=== PATIENT | male | born 1985 | race Caucasian/White ===

== ENCOUNTER 2019-11-17 18:04 | Emergency (ER) | payer OTHER ==
--- NOTE | 2019-11-17 18:20 | PDOC ---
Rapid Medical Evaluation Time Seen by Provider: 11/17/19 18:16 Medical Evaluation: Allergies Allergy/AdvReac Type Severity Reaction Status Date / Time No Known Allergies Allergy Verified 04/29/18 17:13 11/17/19 18:16 I have performed a brief in-person evaluation of this patient. The patient presents with a chief complaint of: Per staff from [facility], pt hit his head during day program, denies change in behavior, LOC. Pt reports hitting forehead. Pertinent physical exam findings: no external evidence of trauma I have ordered the following: nothing The patient will proceed to the ED for further evaluation. Discharge Disposition - Diagnosis Head injury - Referrals - Patient Instructions - Post Discharge Activity
[2019-11-17 18:22] VITALS: BP 110/60; PULSE 59; TEMP 97.4; BMI 21.4
--- NOTE | 2019-11-17 18:47 | PDOC ---
History of Present Illness - General Chief Complaint: Injury Stated Complaint: INJURY Time Seen by Provider: 11/17/19 18:16 - History of Present Illness Initial Comments: 11/17/19 18:40 34-year-old male with mental retardation presents for evaluation after head injury. Patient was frustrated at a group activity walked to the wall and banged his head against the wall. Patient lives at a facility there was no loss of consciousness no post injury nausea vomiting visual changes or headache. Patient is a good historian and was able to tell an accurate history and answer questions appropriately. Past History - Past Medical History Allergies/Adverse Reactions: Allergies Allergy/AdvReac Type Severity Reaction Status Date / Time No Known Allergies Allergy Verified 04/29/18 17:13 Home Medications: Ambulatory Orders Aripiprazole 5 mg PO DAILY 04/29/18 Aripiprazole [Abilify -] 30 mg PO DAILY 04/29/18 Benztropine Mesylate 0.5 mg PO DAILY 04/29/18 Cholecalciferol (Vitamin D3) [Vitamin D3 -] 1,000 unit PO DAILY 04/29/18 Clonazepam [Klonopin] 2 mg PO TID 04/29/18 Nadolol 40 mg PO DAILY 04/29/18 Quetiapine Fumarate [Seroquel -] 200 mg PO HS 04/29/18 Risperidone [Risperdal] 4 mg PO DAILY 04/29/18 Sertraline HCl [Zoloft] 100 mg PO DAILY 04/29/18 COPD: No GI Disorders: Yes (gastritis, gerd, constipation) Psychiatric Problems: Yes (depression, panic attacks) - Psycho Social/Smoking Cessation Hx Smoking History: Never smoked Hx Alcohol Use: No Drug/Substance Use Hx: No Review of Systems - Review of Systems HEENTM: No: Recent change in vision ABD/GI: No: Nausea, Vomiting Neurological: No: Headache, Dizziness *Physical Exam - Vital Signs Last Vital Signs Temp Pulse Resp BP Pulse Ox 97.4 F L 59 L 20 110/60 100 11/17/19 18:16 11/17/19 18:16 11/17/19 18:16 11/17/19 18:16 11/17/19 18:16 - Physical Exam 11/17/19 18:45 GENERAL: The patient is awake, alert, and fully oriented, in no acute distress. HEAD: Normal with no signs of trauma. EYES: sclera anicteric, conjunctiva clear. ENT: Ears normal tympanic membranes normal oropharynx clear uvula midline NECK: Normal range of motion LUNGS: Breath sounds equal, clear to auscultation bilaterally. No wheezes, and no crackles. HEART: S1 and S2 without murmur, rub or gallop. ABDOMEN: Soft, nontender, normoactive bowel sounds. No guarding, no rebound. No masses. EXTREMITIES: Normal range of motion, no edema. No clubbing or cyanosis. No cords, erythema, or tenderness. NEUROLOGICAL: Cranial nerves II through XII grossly intact. Negative Romberg PSYCH: Normal mood, normal affect. SKIN: Warm, Dry, normal turgor, no rashes or lesions noted. Medical Decision Making - Medical Decision Making 11/17/19 18:48 No signs and symptoms of head injury no CAT scan required follow-up with primary care physician Discharge - Discharge Information Problems reviewed: Yes Clinical Impression/Diagnosis: Head injury Condition: Stable Disposition: HOME - Admission No - Follow up/Referral - Patient Discharge Instructions Additional Instructions: Without fail follow-up with your primary care physician in 1 to 2 days for further evaluation and treatment options and return to the emergency room should you experience any nausea vomiting visual changes or headaches. - Post Discharge Activity
== END 2019-11-17 18:54 | disposition home or self-care (01) ==
LOC: JERFT 18:04
DX: S09.90XA Unspecified injury of head, initial encounter (principal); K21.9 Gastro-esophageal reflux disease without esophagitis; F32.9 Major depressive disorder, single episode, unspecified; K59.00 Constipation, unspecified; F79 Unspecified intellectual disabilities
CPT/HCPCS: 99282-25

== ENCOUNTER 2025-03-07 08:29 | Emergency (ER) | payer OTHER ==
[2025-03-07 08:35] VITALS: BP 95/59; PULSE 63; RESP 18; TEMP 97.6; BMI 24.1
[2025-03-07] MEDS: DOXYCYCLINE HYCLATE 100 MG CAPSULE PO ONE (09:20)
[2025-03-07] MEDS ORDERED: DOXYCYCLINE HYCLATE 100 MG TABLET PO ONE (09:20)
== END 2025-03-07 09:53 | disposition home or self-care (01) ==
LOC: JERFT 08:29
PROC: 0HCBXZZ Extirpation of Matter from Right Upper Arm Skin, External Approach (ICD-10-PCS; principal; 2025-03-07)
DX: S40.261A Insect bite (nonvenomous) of right shoulder, initial encounter (principal); W57.XXXA Bitten or stung by nonvenomous insect and other nonvenomous arthropods, initial encounter
CPT/HCPCS: 99283-25